=== PATIENT | male | born 1985 | race Caucasian/White ===

== ENCOUNTER 2022-12-17 22:33 | Emergency (ER) | payer MEDICAID, SELFPAY ==
--- NOTE | ~2022-12-17 | CT_ITS ---
EXAMINATION: CT diagnostic chest wo con DATE: 12/17/2022 23:27 INDICATION: Shortness of breath TECHNIQUE: Computed tomography (CT) of the chest was performed without intravenous contrast. The dose -length product (DLP) was 511.62 mGy-cm. Automated exposure control and iterative reconstruction tech [place] were employed. COMPARISON: 04/18/2016 FINDINGS: There are subtle airspace opacities of the right upper and lower lobes. Areas of atelectasi s/scarring are present in the lingula and right middle lobe. No pleural effusion or pneumothorax. No pathologically enlarged thoracic lymph nodes are identified. The heart size is normal. The liver is d iffusely low in attenuation when compared with the spleen, consistent with hepatic steatosis. There i s anterior wedging of the T12 vertebral body, new since the comparison examination. IMPRESSION: 1. Subtle airspace opacities of the right upper lower lobes, likely infectious or inflammatory. Reviewed, dictated and finalized at location A.
[2022-12-17 22:40] VITALS: BP 156/94; PULSE 67; PULSE 70; RESP 18; TEMP 36.8; O2SAT 95
--- NOTE | 2022-12-17 22:59 | ECG_ITS ---
Measurements Intervals [place] Rate: 54 P: 65 IA: 138 QRS: 55 QRSD: 100 T: 56 QT: 419 QTc: 399 Interpretive Statements SINUS BRADYCARDIA BASELINE ARTIFACT- II, III BORDERLINE ECG NO PREVIOUS ECG AVAILABLE FOR COMPARISON Electronically Signed On 12-18-2022 6:44:16 CDT by Rodney Bahena D.O.
[2022-12-17 23:00] VITALS: BP 133/74; PULSE 70; RESP 18; O2SAT 95
[2022-12-17] MEDS: methylPREDNISolone SOD SUCC 125 MG VIAL IV PUSH (23:22)
[2022-12-17 23:24] VITALS: PULSE 62; RESP 18; O2SAT 96
[2022-12-17] MEDS: IPRATROPIUM 0.5 MG/ALBUTEROL SULFATE 2.5 MG AMPUL.NEB 3 ML INHALATION (23:24)
--- NOTE | 2022-12-17 23:25 | PC.NURSE ---
PT returned from CT. Cardio/pulmonary therapy at bedside for ECG and updraft tx. Monitors resumed. PT medicated with Solu-Medrol as ordered. Family remains at bedside. Call light in reach. Side rails up x 2. Bed brakes on.
[2022-12-17 23:34] VITALS: PULSE 80; RESP 18; O2SAT 98
[2022-12-17 23:34] LABS: Basophils Absolute Auto 0.03 K/mm3 (0.00-0.10); Basophils Percent Auto 0.3 % (0.0-1.0); Eosinophils Absolute Auto 0.01 K/mm3 (0.02-0.50); Eosinophils Percent Auto 0.1 % (1.0-6.0); Hematocrit 50.7 % (40.0-54.0); Hemoglobin 16.9 g/dL (14.0-18.0); Immature Granulocyte Absolute 0.03 K/mm3 (0.00-0.00); Immature Granulocyte Percent A 0.3 % (0.0-0.0); Lymphocytes Absolute Auto 1.28 K/mm3 (1.10-4.50); Lymphocytes Percent Auto 13.4 % (18.0-42.0); Mean Corpuscular HGB Conc 33.3 g/dL (32.0-36.0); Mean Corpuscular Hemoglobin 29.3 pg (27.0-31.0); Mean Corpuscular Volume 87.9 fL (78.0-102.0); Mean Platelet Volume 10.3 fl (8.7-11.0); Monocytes Absolute Auto 0.58 K/mm3 (0.10-0.90); Monocytes Percent Auto 6.1 % (2.0-11.0); Neutrophils Absolute Auto 7.6 K/mm3 (1.7-7.2); Neutrophils Percent Auto 79.8 % (50.0-70.0); Platelet Count Result 240 K/mm3 (150-420); Red Blood Count 5.77 M/mm3 (4.70-6.10); Red Cell Distribution Width 13.5 % (11.6-14.4); White Blood Count 9.6 K/mm3 (4.8-10.8)
[2022-12-17 23:48] LABS: D Dimer 0.21 mg/L (0.19-0.50); INR 0.9; Partial Thromboplastin Time 30.3 SEC (23.90-30.70); Prothrombin Time 10.4 Seconds (9.50-12.10)
[2022-12-18 00:02] LABS: Alanine Aminotransferase 39 U/L (16-63); Albumin Level 4.4 g/dL (3.4-5.0); Alkaline Phosphatase 61 U/L (46-116); Anion Gap 13 mmol/L (8-16); Aspartate Amino Transferase 31 U/L (15-37); Bilirubin,Total 0.6 mg/dL (0.00-1.00); Blood Urea Nitrogen 20 mg/dL (7-18); Carbon Dioxide 25 mmol/L (21-32); Chloride 102 mmol/L (98-108); Estimated Glomerular Filt Rate > 60; Glucose 130 mg/dL (70-99); Magnesium 2.3 mg/dL (1.8-2.4); NT Pro B Type Natriuretic Pept 48 pg/mL (0-125); Osmolality Calculated 294 mOsm/kg (285-295); Potassium 3.9 mmol/L (3.5-5.1); Sodium 140 mmol/L (136-145); Total Protein 8.3 g/dL (6.4-8.2); Troponin I 7.6 ng/L (0.00-60.4)
--- NOTE | 2022-12-18 00:09 | ED.SOB ---
HPI - SOB/Dyspnea General Chief Complaint: Shortness of Breath/Dyspnea Stated Complaint: SOB Time Seen by Provider: 12/17/22 22:47 Source: patient Mode of arrival: ambulatory Limitations: no limitations History of Present Illness HPI Narrative: this is a 37-year-old male that presents with increasing shortness of breath patient has a smoking history and was recently seen in another ER yesterday and diagnosed with some upper respiratory tract infection / bronchitis, presents this evening with increasing shortness of breath despite him taking antibiotics and a Dosepak of steroids. The patient has some wheezing is currently a smoker with no fever chills O2 sats initially around 95% on presentation with no chest pain no abdominal pain nonproductive cough. MD elicited complaint: shortness of breath Related Data Home Medications Medication Instructions Recorded Confirmed azithromycin 250 mg tablet 250 mg PO DAILY 12/17/22 12/17/22 hydrocodone 5 mg-acetaminophen 325 1 - 2 tablet PO QID 12/17/22 12/17/22 mg tablet methylprednisolone 4 mg tablets in 4 mg PO DIRECTED 12/17/22 12/17/22 a dose pack Allergies Allergy/AdvReac Type Severity Reaction Status Date / Time ketorolac Allergy Mild Rash Verified 12/17/22 22:51 PCN Allergy Severe Swelling Uncoded 12/17/22 22:51 of Lip/Tongue/Throat PMFSH Past Medical History Medical History History of pleural effusion Exam Const: General: healthy appearing Nutritional Appearance: well nourished Orientation/consciousness: patient oriented x3 Limitations: no limitations HENMT: Head: normal to inspection Eyes: Conjunctivae: conjunctivae normal Pupils: Equal, round and reactive pupils present EOM: EOMs intact bilaterally Neck: Neck: normal visual inspection Chest: Chest palpation & inspection: normal inspection of the chest Resp: Effort & Inspection: normal respiratory effort Auscultation: wheezes and diminished lung sounds Cardio: Rate: regular rate Rhythm: regular rhythm GI: GI Palp: Yes Soft to palpation Auscultation: normal bowel sounds : General: Yes bladder normal to palpation Skin: General skin exam: normal color Rashes: no rashes Wounds: no wounds Neuro: General: patient oriented x3 Cranial nerves: Yes Nystagmus not present Extrem: General: normal to inspection Psych: Mental Status: mental status grossly normal Affect: normal affect Course Course Emergency Course: patient received IV steroid and DuoNeb had a CT scan of the chest that shows no pleural effusion does not show pneumonia blood work reviewed with patient with a normal white count. Patient after breathing treatment lung sounds have improved patient's disposition as an improved his O2 sats 98% on room air. Vital Signs Vital signs: Vital Signs Temperature 36.8 C 12/17/22 22:40 Pulse Rate 70 12/17/22 22:40 Respiratory Rate 18 12/17/22 22:40 Blood Pressure 156/94 H 12/17/22 22:40 Pulse Oximetry 95 12/17/22 22:40 Oxygen Delivery Room Air 12/17/22 22:40 Temperature 36.8 C 12/17/22 22:40 Pulse Rate 80 12/17/22 23:34 Respiratory Rate 18 12/17/22 23:34 Blood Pressure 156/94 H 12/17/22 22:40 Pulse Oximetry 98 12/17/22 23:34 Oxygen Delivery Room Air 12/17/22 22:40 MDM - SOB/Dyspnea Lab Data 12/17/22 22:59 12/17/22 22:59 Labs: Lab Results 12/17/22 Range/Units 22:59 WBC 9.6 (4.8-10.8) K/mm3 RBC 5.77 (4.70-6.10) M/mm3 Hgb 16.9 (14.0-18.0) g/dL Hct 50.7 (40.0-54.0) % MCV 87.9 (78.0-102.0) fL MCH 29.3 (27.0-31.0) pg MCHC 33.3 (32.0-36.0) g/dL RDW 13.5 (11.6-14.4) % Plt Count 240 (150-420) K/mm3 MPV 10.3 (8.7-11.0) fl Immature Gran % (Auto) 0.3 H (0.0-0.0) % Neut % (Auto) 79.8 H (50.0-70.0) % Lymph % (Auto) 13.4 L (18.0-42.0) % Floyd % (Auto) 6.1 (2.0-11.0) % Eos % (Auto) 0.1 L (1.0-6.0)
[2022-12-18 00:22] VITALS: BP 125/74; PULSE 59; RESP 16; O2SAT 95
--- NOTE | 2022-12-24 12:26 | PC.NURSE ---
final blood culture reports x2 reviewed. no growth after 5 days . no change in plan of care.
== END 2022-12-18 00:22 | disposition home or self-care (01) ==
PROVIDERS: Emergency Provider Emergency Medicine
DX: J06.9 Acute upper respiratory infection, unspecified (principal); Z79.891 Long term (current) use of opiate analgesic
CPT/HCPCS: 36415; 71250; 80053; 83735; 83880; 84484; 85025; 85380; 85610; 85730; 87040; 93005; 94640; 96374; 99284; J2930

== ENCOUNTER 2022-12-18 18:22 | Inpatient (IN) | payer MEDICAID, SELFPAY ==
[2022-12-18] VITALS (10 sets, daily range): BP systolic 103–158; BP diastolic 54–92; PULSE 84–113; RESP 20–24; TEMP 37.5–38.8; O2SAT 93–100; BMI 36.6
--- NOTE | ~2022-12-18 | XR_ITS ---
EXAMINATION: XR chest 2V DATE: 12/18/2022 19:58 INDICATION: Cough. Upper respiratory infection. Shortness of breath. TECHNIQUE: Frontal and lateral views of the chest were obtained. COMPARISON: Chest CT 12/17/2022, chest single view 04/18/2016 FINDINGS: There is blunting of the costophrenic angles, consistent with scarring. There are mild airs pace opacities in the mid and lower lung zones. No pleural effusion or pneumothorax. The heart size i s normal. There is a chronic compression fracture of T12. IMPRESSION: 1. Mild airspace opacities in the mid and lower lung zones, consistent with atelectasis/scarring vers us pneumonia. Reviewed, dictated and finalized at location E. IMPRESSION: 1. Mild airspace opacities in the mid and lower lung zones, consistent with ate lectasis/scarring versus pneumonia.
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
[2022-12-18 19:06] LABS: Strep Group A RT-PCR NOT DETECTED (Negative)
--- NOTE | 2022-12-18 19:12 | ECG_ITS ---
Measurements Intervals [place] Rate: 100 P: 57 ID: 120 QRS: 34 QRSD: 103 T: 59 QT: 331 QTc: 429 Interpretive Statements SINUS TACHYCARDIA BASELINE ARTIFACT- I, II, III, AVR, AVL, AVF BORDERLINE ECG COMPARED TO ECG 12/17/2022 23:35:39 SINUS TACHYCARDIA NOW PRESENT Electronically Signed On 12-19-2022 8:22:30 CDT by Rodney Bahena D.O.
[2022-12-18 19:18] LABS: Influenza A QL RT-PCR Negative (Negative); Influenza B QL RT-PCR Negative (Negative); SARS-CoV-2 RNA PCR Negative (Negative)
[2022-12-18 19:20] LABS: RSV RNA, RT-PCR Negative (Negative)
[2022-12-18] MEDS: IPRATROPIUM 0.5 MG/ALBUTEROL SULFATE 2.5 MG AMPUL.NEB 3 ML INHALATION (19:20)
[2022-12-18 19:42] LABS: Hematocrit 52.6 % (40.0-54.0); Hemoglobin 17.3 g/dL (14.0-18.0); Mean Corpuscular HGB Conc 32.9 g/dL (32.0-36.0); Mean Corpuscular Hemoglobin 29.3 pg (27.0-31.0); Mean Corpuscular Volume 89.2 fL (78.0-102.0); Mean Platelet Volume 10.3 fl (8.7-11.0); Platelet Count Result 232 K/mm3 (150-420); Red Cell Distribution Width 13.5 % (11.6-14.4)
[2022-12-18] MEDS: SODIUM CHLORIDE 0.9% IV 1,000 ML 999 ML IV CONT ×2 (19:43→20:46)
[2022-12-18] MEDS: BENZONATATE 100 MG CAPSULE 200 MG PO (19:44)
[2022-12-18] MEDS: diphenhydrAMINE HCl INJ 50 MG/ML VIAL IV PUSH (19:44)
[2022-12-18] MEDS: ACETAMINOPHEN 500 MG TABLET 1000 MG PO (19:44)
[2022-12-18] MEDS: guaiFENesin/DEXTROMETHORPHAN 5 ML UDC 10 ML PO (19:44)
[2022-12-18] MEDS: IBUPROFEN 400 MG TABLET 800 MG PO (19:45)
[2022-12-18 19:56] LABS: D Dimer 0.19 mg/L (0.19-0.50)
[2022-12-18 20:03] LABS: Band Neutrophils Percent 1 % (0-6); Basophils Percent Manual 0 % (0-1); Eosinophils Percent Manual 0 % (1-6); Lymphocytes Absolute Manual 2.53 K/mm3 (1.1-4.5); Lymphocytes Percent Manual 11 % (18-44); Monocytes Absolute Manual 1.38 K/mm3 (0.1-0.90); Monocytes Percent Manual 6 % (3-9); Neutrophils Absolute Manual 19.09 K/mm3 (1.3-6.7); Neutrophils Percent Manual 82 % (46-73); Platelet Estimate Adequate (Adequate); Total Cells Counted 100
[2022-12-18 20:04] LABS: Alanine Aminotransferase 34 U/L (16-63); Albumin Level 4.6 g/dL (3.4-5.0); Alkaline Phosphatase 63 U/L (46-116); Anion Gap 15 mmol/L (8-16); Aspartate Amino Transferase 34 U/L (15-37); Bilirubin,Total 0.9 mg/dL (0.00-1.00); Blood Urea Nitrogen 25 mg/dL (7-18); CRP 4.8 mg/dL (0.0-0.9); Calcium 9.1 mg/dL (8.5-10.1); Carbon Dioxide 22 mmol/L (21-32); Chloride 100 mmol/L (98-108); Estimated CRCL calculation 79 ml/min; Estimated Glomerular Filt Rate 59; Glucose 108 mg/dL (70-99); NT Pro B Type Natriuretic Pept 50 pg/mL (0-125); Osmolality Calculated 289 mOsm/kg (285-295); Potassium 3.8 mmol/L (3.5-5.1); Sodium 137 mmol/L (136-145); Total Protein 8.8 g/dL (6.4-8.2)
[2022-12-18 20:12] LABS: Lactic Acid Reflex 3.3 mmol/L (0.4-2.0)
[2022-12-18] MEDS: cefTRIAXone 2 GM/NS 100 ML 2 GM/100 ML BAG IVPB (20:16)
[2022-12-18 20:45] LABS: Erythrocyte Sedimentation Rate 6 mm/hr (0-15)
[2022-12-18] MEDS: AZITHROMYCIN 500 MG/NS 250 ML 500 MG/250 ML BAG 250 MG IVPB (20:47)
--- NOTE | 2022-12-18 21:54 | ADMGEN ---
This patient, Daquan Miranda III, was admitted to 2nd Floor Room 209-1. Patient/family oriented to hospital policies and general routines including ID bracelet, bed and alarms, visiting hours, pain management, procedures, bathroom and other care routines, personal items, smoking policy, room service/diet, and visiting hours. Information on how to activate the Rapid Response Team has been discussed. Patient/Family are encouraged to report perceived risks to care and to ask questions if they do not understand what they are told or what they should do. Pt stated understanding of admission instructions, he answers questions appropriately and is up ad yonatan per self to BR to urinate. Pt has call meneses at side and encouraged to call if assist needed.
[2022-12-18] MEDS: SODIUM CHLORIDE 0.9% IV 1,000 ML 100 ML IV CONT (22:11)
--- NOTE | 2022-12-18 22:13 | PC.NURSE ---
Pt was able to produce small amt thin clear sputum for culture. Taken to lab per order. Pt sitting on side of bed eating another sandwich. Pt states he is feeling much better and able to finally tolerate eating regular food.
[2022-12-18 22:40] LABS: Reflex Lactic Acid Yes or No Add Lactic
[2022-12-18 23:17] LABS: Lactic Acid 2.2 mmol/L (0.4-2.0)
[2022-12-19] VITALS (14 sets, daily range): BP systolic 110–170; BP diastolic 40–83; PULSE 53–85; RESP 16–19; TEMP 35.9–37.2; O2SAT 92–100
[2022-12-19] MEDS: methylPREDNISolone SOD SUCC 125 MG VIAL 60 MG IV PUSH ×5 (00:08→23:23)
[2022-12-19 05:09] LABS: Basophils Absolute Auto 0.03 K/mm3 (0.00-0.10); Basophils Percent Auto 0.2 % (0.0-1.0); Hematocrit 45.6 % (40.0-54.0); Hemoglobin 14.9 g/dL (14.0-18.0); Immature Granulocyte Absolute 0.06 K/mm3 (0.00-0.00); Immature Granulocyte Percent A 0.4 % (0.0-0.0); Lymphocytes Absolute Auto 1.24 K/mm3 (1.10-4.50); Lymphocytes Percent Auto 8.8 % (18.0-42.0); Mean Corpuscular HGB Conc 32.7 g/dL (32.0-36.0); Mean Corpuscular Hemoglobin 29.3 pg (27.0-31.0); Mean Corpuscular Volume 89.6 fL (78.0-102.0); Mean Platelet Volume 10.6 fl (8.7-11.0); Monocytes Absolute Auto 0.39 K/mm3 (0.10-0.90); Monocytes Percent Auto 2.8 % (2.0-11.0); Neutrophils Absolute Auto 12.4 K/mm3 (1.7-7.2); Neutrophils Percent Auto 87.8 % (50.0-70.0); Platelet Count Result 221 K/mm3 (150-420); Red Blood Count 5.09 M/mm3 (4.70-6.10); Red Cell Distribution Width 13.7 % (11.6-14.4); White Blood Count 14.2 K/mm3 (4.8-10.8)
[2022-12-19 05:25] LABS: Alanine Aminotransferase 27 U/L (16-63); Albumin Level 3.2 g/dL (3.4-5.0); Alkaline Phosphatase 46 U/L (46-116); Anion Gap 9 mmol/L (8-16); Aspartate Amino Transferase 20 U/L (15-37); Bilirubin,Total 0.3 mg/dL (0.00-1.00); Blood Urea Nitrogen 27 mg/dL (7-18); Calcium 8.2 mg/dL (8.5-10.1); Carbon Dioxide 23 mmol/L (21-32); Chloride 109 mmol/L (98-108); Estimated CRCL calculation 89 ml/min; Estimated Glomerular Filt Rate > 60; Glucose 154 mg/dL (70-99); Osmolality Calculated 300 mOsm/kg (285-295); Potassium 4.3 mmol/L (3.5-5.1); Sodium 141 mmol/L (136-145); Total Protein 6.6 g/dL (6.4-8.2)
[2022-12-19 05:32] LABS: Lactic Acid Reflex 1.2 mmol/L (0.4-2.0)
[2022-12-19] MEDS: IPRATROPIUM 0.5 MG/ALBUTEROL SULFATE 2.5 MG AMPUL.NEB 3 ML INHALATION ×4 (06:41→18:40)
[2022-12-19] MEDS: NICOTINE (*PBKC) 21 MG PATCH 1 PATCH TRANSDERM (08:17)
[2022-12-19] MEDS: BENZONATATE 100 MG CAPSULE 200 MG PO ×3 (08:17→17:18)
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
--- NOTE | 2022-12-19 09:10 | PC.NURSE ---
OPERATIONS PROGRAM MANAGER notified of sepsis alert and all vital signs related to patient and condition. Orders to monitor at this time.
[2022-12-19] MEDS: HYDROcodone/acetaminophen (*CRX) 5-325 MG TABLET 1 TAB PO (20:32)
[2022-12-19] MEDS: AZITHROMYCIN 500 MG/NS 250 ML 500 MG/250 ML BAG 250 MG IVPB (20:32)
[2022-12-20] VITALS (14 sets, daily range): BP systolic 118–151; BP diastolic 54–72; PULSE 58–97; RESP 16–18; TEMP 35.9–36.9; O2SAT 95–99
[2022-12-20] MEDS: IPRATROPIUM 0.5 MG/ALBUTEROL SULFATE 2.5 MG AMPUL.NEB 3 ML INHALATION ×4 (00:01→18:27)
[2022-12-20] MEDS: methylPREDNISolone SOD SUCC 125 MG VIAL 60 MG IV PUSH ×2 (05:15→08:12)
[2022-12-20 05:21] LABS: Basophils Absolute Auto 0.02 K/mm3 (0.00-0.10); Basophils Percent Auto 0.1 % (0.0-1.0); Hematocrit 46.8 % (40.0-54.0); Hemoglobin 15.3 g/dL (14.0-18.0); Immature Granulocyte Absolute 0.16 K/mm3 (0.00-0.00); Immature Granulocyte Percent A 0.9 % (0.0-0.0); Lymphocytes Absolute Auto 1.17 K/mm3 (1.10-4.50); Lymphocytes Percent Auto 6.4 % (18.0-42.0); Mean Corpuscular HGB Conc 32.7 g/dL (32.0-36.0); Mean Corpuscular Hemoglobin 29.6 pg (27.0-31.0); Mean Corpuscular Volume 90.5 fL (78.0-102.0); Mean Platelet Volume 10.8 fl (8.7-11.0); Monocytes Absolute Auto 0.68 K/mm3 (0.10-0.90); Monocytes Percent Auto 3.7 % (2.0-11.0); Neutrophils Absolute Auto 16.3 K/mm3 (1.7-7.2); Neutrophils Percent Auto 88.9 % (50.0-70.0); Platelet Count Result 230 K/mm3 (150-420); Red Blood Count 5.17 M/mm3 (4.70-6.10); Red Cell Distribution Width 14.2 % (11.6-14.4); White Blood Count 18.4 K/mm3 (4.8-10.8)
[2022-12-20 05:37] LABS: Alanine Aminotransferase 25 U/L (16-63); Albumin Level 3.3 g/dL (3.4-5.0); Alkaline Phosphatase 45 U/L (46-116); Anion Gap 10 mmol/L (8-16); Aspartate Amino Transferase 18 U/L (15-37); Bilirubin,Total 0.3 mg/dL (0.00-1.00); Blood Urea Nitrogen 20 mg/dL (7-18); Calcium 8.6 mg/dL (8.5-10.1); Carbon Dioxide 23 mmol/L (21-32); Chloride 108 mmol/L (98-108); Estimated CRCL calculation 106 ml/min; Estimated Glomerular Filt Rate > 60; Glucose 146 mg/dL (70-99); Osmolality Calculated 297 mOsm/kg (285-295); Potassium 3.9 mmol/L (3.5-5.1); Sodium 141 mmol/L (136-145); Total Protein 6.9 g/dL (6.4-8.2)
[2022-12-20 05:42] LABS: Lactic Acid Reflex 1.8 mmol/L (0.4-2.0)
--- NOTE | 2022-12-20 07:05 | WPDPN ---
Progress Note: A&P Assessment and Plan (1) Pneumonia: Qualifiers: Laterality: right Lung location: lower lobe of lung Pneumonia type: due to unspecified organism Qualified Code(s): J18.9 - Pneumonia, unspecified organism Code(s): J18.9 - Pneumonia, unspecified organism Status: Acute Assessment and Plan: As evidenced by imaging. I have independently reviewed imaging myself and agree. RUL and RLL Consolodations present. No longer meeting Sepsis criteria. Blood cultures pending. Pneumococcal Ag Urine pending. Continue with scheduled Duoneb, and prn Albuterol, suspect COPD component. Pt. would benefit from formal Pulmonary function testing at discharge. Continue IV abx of Azithromycin and Rocephin. Today is Day #2 of IV Abx. Continue IV Solumedrol decreased to daily Monitor sats with VS. Continue to trend labs. PRN cough meds PRN antipyretics Oxygen as needed to keep sats >92%. WBC 23.0>14.2>18.4 decresaed steroid to see if wbc is improved. (2) Nicotine dependence with current use: Code(s): F17.200 - Nicotine dependence, unspecified, uncomplicated Status: Chronic Assessment and Plan: Nicotine Patch Counseled for discontinuation of Nicotine use. (3) Sepsis: Qualifiers: Sepsis acute organ dysfunction status: without acute organ dysfunction Sepsis type: sepsis due to unspecified organism Qualified Code(s): A41.9 - Sepsis, unspecified organism Code(s): A41.9 - Sepsis, unspecified organism Status: Resolved Assessment and Plan: Now resolved with interval improvement in WBC's, Lactic acid and now stable vitals. Plan Will monitor patient for another 24 hours and allow him to receive more IV abx then reassess. Subjective Date/time seen: 12/20/22 07:05 Interval history: patient is anxious to discharge but knows he is not ready and is welling to stay. He did note that his is anxious due to family issue and has agree to Ativan. I explained to patient that is wbc has increased and we need to make sure his abx is appropriate. he did stay that his breathing is fine and normal now. Patient will stay another day to monitor wbc. Review of Systems Review of Systems: All systems reviewed & are unremarkable except as noted in HPI and below Objective Data Vital Signs Vital Signs: Vital Signs - 24 hr 12/19/22 07:44 12/19/22 07:44 12/19/22 12:00 Temperature 35.9 C L Pulse Rate 61 53 L 76 Respiratory Rate 18 Blood Pressure 110/40 L Pulse Oximetry 96 Oxygen Delivery Room Air 12/19/22 12:00 12/19/22 12:25 12/19/22 12:31 Temperature 36.5 C Pulse Rate 57 L 60 59 L Respiratory Rate 18 16 16 Blood Pressure 170/83 H Pulse Oximetry 97 97 Oxygen Delivery Room Air 12/19/22 16:00 12/19/22 16:00 12/19/22 18:40 Temperature 36.5 C Pulse Rate 70 75 72 Respiratory Rate 16 18 Blood Pressure 148/74 H Pulse Oximetry 98 98 Oxygen Delivery Room Air 12/19/22 18:45 12/19/22 20:00 12/19/22 20:00 Temperature Pulse Rate 75 79 75 Respiratory Rate 16 16 Blood Pressure Pulse Oximetry 100 100 Oxygen Delivery Room Air 12/19/22 20:00 12/20/22 00:01 12/20/22 00:08 Temperature 36.7 C Pulse Rate 79 77 75 Respiratory Rate 17 17 17 Blood Pressure 130/64 Pulse Oximetry 96 98 98 Oxygen Delivery Room Air 12/20/22 00:00 12/20/22 00:00 12/20/22 04:00 Temperature 36.5 C Pulse Rate 80 80 72 Respiratory Rate 18 Blood Pressure 131/70 Pulse Oximetry 96 Oxygen Delivery Room Air 12/20/22 04:00 12/20/22 06:26 12/20/22 06:35 Temperature 36.6 C Pulse Rate 72 58 L 60 Respiratory Rate 17 16 16 Blood Pressure 123/54 L Pulse Oximetry 96 97 99 Oxygen Delivery Room Air Intake/Output Intake/Output: Intake & Output 12/17/22 12/18/22 12/19/22 12/20/22 23:59 23:59 23:59 23:59 Intake Total 2830 3280 480 Output Total 300 Balance 2830 2980 480 Meds/Results Medications
[2022-12-20] MEDS: LORazepam INJ (*CRX) 2 MG/ML VIAL 0.5 MG IV PUSH ×2 (08:09→20:57)
[2022-12-20] MEDS: traMADol HCL (*CRX) 50 MG TABLET PO (08:14)
[2022-12-20] MEDS: NICOTINE (*PBKC) 21 MG PATCH 1 PATCH TRANSDERM (08:15)
[2022-12-20] MEDS: BENZONATATE 100 MG CAPSULE 200 MG PO ×3 (08:15→17:03)
[2022-12-20] MEDS: AZITHROMYCIN 500 MG/NS 250 ML 500 MG/250 ML BAG 250 MG IVPB (20:56)
[2022-12-20] MEDS: HYDROcodone/acetaminophen (*CRX) 5-325 MG TABLET 1 TAB PO (20:57)
[2022-12-21] VITALS (7 sets, daily range): BP systolic 120–138; BP diastolic 57–82; PULSE 66–85; RESP 16–17; TEMP 36.2–36.6; O2SAT 96–98
[2022-12-21] MEDS: IPRATROPIUM 0.5 MG/ALBUTEROL SULFATE 2.5 MG AMPUL.NEB 3 ML INHALATION ×2 (00:11→05:24)
[2022-12-21 05:53] LABS: Basophils Absolute Auto 0.03 K/mm3 (0.00-0.10); Basophils Percent Auto 0.2 % (0.0-1.0); Eosinophils Absolute Auto 0.01 K/mm3 (0.02-0.50); Eosinophils Percent Auto 0.1 % (1.0-6.0); Hematocrit 45.6 % (40.0-54.0); Hemoglobin 14.9 g/dL (14.0-18.0); Immature Granulocyte Absolute 0.18 K/mm3 (0.00-0.00); Immature Granulocyte Percent A 1.1 % (0.0-0.0); Lymphocytes Absolute Auto 2.39 K/mm3 (1.10-4.50); Lymphocytes Percent Auto 14.2 % (18.0-42.0); Mean Corpuscular HGB Conc 32.7 g/dL (32.0-36.0); Mean Corpuscular Hemoglobin 29.4 pg (27.0-31.0); Mean Corpuscular Volume 89.9 fL (78.0-102.0); Mean Platelet Volume 11.3 fl (8.7-11.0); Monocytes Absolute Auto 1.21 K/mm3 (0.10-0.90); Monocytes Percent Auto 7.2 % (2.0-11.0); Neutrophils Percent Auto 77.2 % (50.0-70.0); Platelet Count Result 229 K/mm3 (150-420); Red Blood Count 5.07 M/mm3 (4.70-6.10); Red Cell Distribution Width 14.4 % (11.6-14.4); White Blood Count 16.9 K/mm3 (4.8-10.8)
[2022-12-21 06:10] LABS: Lactic Acid Reflex 1.2 mmol/L (0.4-2.0)
[2022-12-21 06:16] LABS: Alanine Aminotransferase 29 U/L (16-63); Albumin Level 3.3 g/dL (3.4-5.0); Alkaline Phosphatase 45 U/L (46-116); Anion Gap 8 mmol/L (8-16); Aspartate Amino Transferase 16 U/L (15-37); Bilirubin,Total 0.3 mg/dL (0.00-1.00); Blood Urea Nitrogen 21 mg/dL (7-18); Calcium 8.5 mg/dL (8.5-10.1); Carbon Dioxide 26 mmol/L (21-32); Chloride 108 mmol/L (98-108); Estimated CRCL calculation 121 ml/min; Estimated Glomerular Filt Rate > 60; Glucose 94 mg/dL (70-99); Osmolality Calculated 297 mOsm/kg (285-295); Potassium 3.6 mmol/L (3.5-5.1); Sodium 142 mmol/L (136-145); Total Protein 6.6 g/dL (6.4-8.2)
[2022-12-21] MEDS: NICOTINE (*PBKC) 21 MG PATCH 1 PATCH TRANSDERM (08:26)
[2022-12-21] MEDS: methylPREDNISolone SOD SUCC 125 MG VIAL 60 MG IV PUSH (08:27)
[2022-12-21] MEDS: BENZONATATE 100 MG CAPSULE 200 MG PO (08:29)
--- NOTE | 2022-12-21 09:06 | PM.DS ---
DS: Admitting Diagnosis Discharge Date 12/21/2022 Admitting Diagnosis Pneumonia , Sepsis DS: Discharge Diagnosis Discharge Diagnosis (1) Pneumonia: Qualifiers: Laterality: right Lung location: lower lobe of lung Pneumonia type: due to unspecified organism Qualified Code(s): J18.9 - Pneumonia, unspecified organism Code(s): J18.9 - Pneumonia, unspecified organism Status: Acute Assessment and Plan: As evidenced by imaging. I have independently reviewed imaging myself and agree. RUL and RLL Consolodations present. No longer meeting Sepsis criteria. Blood cultures pending. Pneumococcal Ag Urine pending. Continue with scheduled Duoneb, and prn Albuterol, suspect COPD component. Pt. would benefit from formal Pulmonary function testing at discharge. Continue IV abx of Azithromycin and Rocephin. Today is Day #2 of IV Abx. Continue IV Solumedrol Monitor sats with VS. Continue to trend labs. PRN cough meds PRN antipyretics Oxygen as needed to keep sats >92%. (2) Nicotine dependence with current use: Code(s): F17.200 - Nicotine dependence, unspecified, uncomplicated Status: Chronic Assessment and Plan: Nicotine Patch Counseled for discontinuation of Nicotine use. (3) Sepsis: Qualifiers: Sepsis acute organ dysfunction status: without acute organ dysfunction Sepsis type: sepsis due to unspecified organism Qualified Code(s): A41.9 - Sepsis, unspecified organism Code(s): A41.9 - Sepsis, unspecified organism Status: Resolved Assessment and Plan: Now resolved with interval improvement in WBC's, Lactic acid and now stable vitals. Plan Will monitor patient for another 24 hours and allow him to receive more IV abx then reassess. DS: Summary Hospital Course Reason for hospitalization: PNEUMONIA Hospital Course: Year old male that was admitted to the hospital with sepsis hypoxia and pneumonia and was febrile. Patient was treated with IV antibiotics of vancomycin and Zosyn and was receiving around the clock breathing treatments. Patient has continued to improve is responding to medication. Patient continues to be a daily smoker and has an inhaler at home. Patient continues to have occasional intermittent wheezing but has remained afebrile for the past 24 hours. Have discussed with patient the importance of quitting to smoke patient feels better and bills like he is able to go home. Patient white count remains high but is trending down. Patient has been on room air and denies any pain has been eating and drinking without any difficulty and has been off of oxygen for more than 24 hours. Patient will discharge with an inhaler oral antibiotics as well as oral steroids to follow up with his PCP within a week. DISCUSSED elevated WBC and pneumonia with patient he states he is feeling a lot better and he insists that he is in need of discharging today as he feels a lot better and he is not wanting to stay a additional day to monitor her WBC Time Spent with Patient Time attestation: Total time spent providing and/or coordinating discharge services: Exam Const: General: comfortable and no acute distress HENMT: Face/Nose/Sinus: Normal nares present and no epistaxis Mouth: Yes moist mucous membranes and No Abnormal oral and palatal mucosa present Eyes: General: appearance normal, both eyes and all related structures Sclera: sclerae normal Pupils: Equal, round and reactive pupils present EOM: EOMs intact bilaterally Neck: Neck: supple and no JVD Carotids: no bruits Lymphatic: lymphadenopathy not noted Chest: Other: Non-tender to palpation and no crepitus palpable. Resp: Effort & Inspection: normal respiratory effort Auscultation: crackles bilateral at the base and wheezes expiratory wheezes, anterior and posterior Other: Prolonged expiratory phase present. Cardio: Rate: regular rate Rhythm: regular rhythm Heart sounds: n
--- NOTE | 2022-12-21 09:07 | PC.NURSE ---
Discontinued IV access and telemetry in anticipation of discharge. Patient tolerated well.
--- NOTE | 2022-12-21 10:35 | PC.NURSE ---
Discharge instructions given to patient and his brother. Patient voiced understanding. Patient left floor ambulating independently and left hospital grounds in privately owned vehicle. Personal belongings sent home with patient.
[2022-12-23 20:58] LABS: Pneumococcal Antigen Urine Not Detected (Not Detected)
--- NOTE | 2022-12-24 11:03 | PC.NURSE ---
Unable to contact for discharge call back.
== END 2022-12-21 10:35 | disposition home or self-care (01) | DRG 720 ==
LOC: CHSED 20:41 → CHS2ND 20:44
PROVIDERS: Nurse Practitioner Adult Health; Admitting Provider Internal Medicine; Emergency Provider Emergency Medicine; Visit Provider Internal Medicine
DX: A41.9 Sepsis, unspecified organism (principal); J18.9 Pneumonia, unspecified organism; Z20.822 Contact with and (suspected) exposure to COVID-19; J06.9 Acute upper respiratory infection, unspecified; F17.210 Nicotine dependence, cigarettes, uncomplicated
CPT/HCPCS: 36415; 71046; 80053; 83605; 83880; 85025; 85380; 85652; 86140; 87040; 87070; 87205; 87637; 87651; 87899; 93005; 94640; 96365; 96375; 99285; A9270; J0456; J0696; J1200; J2060; J2930; J7030

== ENCOUNTER 2023-02-15 09:57 | Emergency (ER) | payer MEDICAID, SELFPAY ==
[2023-02-15] VITALS (12 sets, daily range): BP systolic 102–133; BP diastolic 53–101; PULSE 44–73; RESP 11–22; TEMP 36.6–36.7; O2SAT 89–98
--- NOTE | ~2023-02-15 | CT_ITS ---
EXAMINATION: CT abdomen pelvis w con DATE: 02/15/2023 11:23 INDICATION: Epigastric abdominal pain, emesis for one day TECHNIQUE: Computed tomography (CT) of the abdomen and pelvis was performed with 100 CC Omnipaque 350 intravenous contrast. Automated exposure control and iterative reconstruction technique were employe d. Exam dose: 983.78 mGy-cm total exam DLP. COMPARISON: None. FINDINGS: Mild atelectasis and/or scarring at the lung bases. Normal heart size. No pericardial or pleural effusion. There is diffuse hepatic steatosis. No hepatic space-occupying mass lesion is detected. Normal spleni c size. No pancreatic mass lesion, calcification or ductal dilatation. The gallbladder is present. No gallbladder wall thickening or pericholecystic fluid or fat stranding. Normal caliber of the bile ducts. Normal morphology of the adrenal glands. No renal mass lesion or urinary tract calculus or hydroureteronephrosis. Normal appendix. No bowel obstruction, bowel wall thickening, pneumatosis or intraperitoneal free air. There is prosta te enlargement and multiple prostate calcifications. The urinary bladder appears unremarkable. There is an IVC filter. Normal caliber of the abdominal aorta. No intraperitoneal or retroperitoneal or pelvic mass lesion or adenopathy or ascites. Small fat-containing umbilical hernia. Moderate loss of height and anterior wedging of T12, which appears chronic. No suspicious osteolytic or osteoblastic lesions are noted. IMPRESSION: Diffuse hepatic steatosis Normal appendix No bowel obstruction or free air IVC filter Prostate enlargement and calcifications Chronic compression fracture deformity of T12 Reviewed, dictated and finalized at [facility]. Reviewed, dictated and finalized at location B.
--- NOTE | 2023-02-15 10:08 | ECG_ITS ---
Measurements Intervals [place] Rate: 50 P: 47 MS: 138 QRS: 52 QRSD: 106 T: 45 QT: 449 QTc: 412 Interpretive Statements SINUS BRADYCARDIA BORDERLINE ECG COMPARED TO ECG 12/18/2022 19:26:48 SINUS BRADYCARDIA NOW PRESENT Electronically Signed On 02-15-2023 10:32:42 CDT by Rodney Bahena D.O.
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
--- NOTE | 2023-02-15 10:15 | PC.NURSE ---
air launch weapons technician at patient bedside for blood draw
[2023-02-15 10:26] LABS: Basophils Absolute Auto 0.05 K/mm3 (0.00-0.10); Basophils Percent Auto 0.6 % (0.0-1.0); Eosinophils Absolute Auto 0.15 K/mm3 (0.02-0.50); Eosinophils Percent Auto 1.8 % (1.0-6.0); Hematocrit 44.9 % (40.0-54.0); Hemoglobin 15.2 g/dL (14.0-18.0); Immature Granulocyte Absolute 0.04 K/mm3 (0.00-0.00); Immature Granulocyte Percent A 0.5 % (0.0-0.0); Lymphocytes Absolute Auto 2.58 K/mm3 (1.10-4.50); Lymphocytes Percent Auto 30.8 % (18.0-42.0); Mean Corpuscular HGB Conc 33.9 g/dL (32.0-36.0); Mean Corpuscular Hemoglobin 29.3 pg (27.0-31.0); Mean Corpuscular Volume 86.5 fL (78.0-102.0); Mean Platelet Volume 10.4 fl (8.7-11.0); Monocytes Absolute Auto 0.59 K/mm3 (0.10-0.90); Neutrophils Percent Auto 59.3 % (50.0-70.0); Platelet Count Result 270 K/mm3 (150-420); Red Blood Count 5.19 M/mm3 (4.70-6.10); Red Cell Distribution Width 13.6 % (11.6-14.4); White Blood Count 8.4 K/mm3 (4.8-10.8)
[2023-02-15] MEDS: PANTOPRAZOLE SODIUM IV 40 MG VIAL IV PUSH (10:39)
[2023-02-15] MEDS: ONDANSETRON INJ 4 MG/2 ML VIAL IV PUSH (10:39)
[2023-02-15] MEDS: MAG HYDROX/ALUMINUM HYD/SIMETH 30 ML, PHENobarb/HYOSCY/ATROPINE/SCOP 32.4 MG, LIDOCAINE... PO (10:40)
[2023-02-15] MEDS: SODIUM CHLORIDE 0.9% IV 1,000 ML 999 ML IV CONT ×2 (10:40→11:23)
[2023-02-15 10:52] LABS: Alanine Aminotransferase 47 U/L (16-63); Albumin Level 4.1 g/dL (3.4-5.0); Alkaline Phosphatase 43 U/L (46-116); Amylase 66 U/L (25-115); Anion Gap 10 mmol/L (8-16); Aspartate Amino Transferase 32 U/L (15-37); Bilirubin,Total 0.8 mg/dL (0.00-1.00); Blood Urea Nitrogen 16 mg/dL (7-18); Calcium 9.3 mg/dL (8.5-10.1); Carbon Dioxide 24 mmol/L (21-32); Chloride 106 mmol/L (98-108); Estimated CRCL calculation 90 ml/min; Estimated Glomerular Filt Rate > 60; Glucose 97 mg/dL (70-99); Lipase 79 U/L (16-77); Osmolality Calculated 291 mOsm/kg (285-295); Potassium 3.4 mmol/L (3.5-5.1); Sodium 140 mmol/L (136-145); Total Protein 7.1 g/dL (6.4-8.2); Troponin I 6.5 ng/L (0.00-60.4)
--- NOTE | 2023-02-15 12:07 | PC.NURSE ---
Visitor arrived at patient bedside at this time.
--- NOTE | 2023-02-15 12:45 | PC.NURSE ---
Dr. Negrete at patient bedside for patient update.
[2023-02-15] MEDS: POTASSIUM BICARBONATE 25 MEQ TABEF 50 MEQ PO (12:55)
== END 2023-02-15 13:20 | disposition home or self-care (01) ==
PROVIDERS: Emergency Provider Emergency Medicine
DX: R12 Heartburn (principal); F17.210 Nicotine dependence, cigarettes, uncomplicated
CPT/HCPCS: 36415; 74177; 80053; 82150; 83605; 83690; 84484; 85025; 93005; 96361; 96374; 96375; 99284; A9270; C9113; J2405; J7030; Q9967

== ENCOUNTER 2023-02-26 10:39 | Emergency (ER) | payer MEDICAID, SELFPAY ==
[2023-02-26 10:42] VITALS: BP 136/82; PULSE 85; RESP 20; TEMP 36.3; O2SAT 98
--- NOTE | 2023-02-26 10:44 | ECG_ITS ---
Measurements Intervals [place] Rate: 45 P: 48 RI: 133 QRS: 46 QRSD: 116 T: 42 QT: 462 QTc: 400 Interpretive Statements SINUS BRADYCARDIA OTHERWISE NORMAL ECG COMPARED TO ECG 02/15/2023 10:22:56 I NO DIFFERENCE Electronically Signed On 02-26-2023 12:38:52 CDT by Gianfranco Singh M.D.
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
[2023-02-26] MEDS: MAG HYDROX/ALUMINUM HYD/SIMETH 30 ML, PHENobarb/HYOSCY/ATROPINE/SCOP 32.4 MG, LIDOCAINE... PO (10:54)
[2023-02-26 10:58] VITALS: BP 128/75; PULSE 56; RESP 20; O2SAT 97
[2023-02-26 11:21] VITALS: BP 134/78; PULSE 54; RESP 20; O2SAT 97
== END 2023-02-26 11:27 | disposition home or self-care (01) ==
LOC: CHSED 11:23
PROVIDERS: Emergency Provider Emergency Medicine
DX: K21.9 Gastro-esophageal reflux disease without esophagitis (principal); F17.210 Nicotine dependence, cigarettes, uncomplicated
CPT/HCPCS: 93005; 99283; A9270

== ENCOUNTER 2023-02-28 09:03 | Emergency (ER) | payer MEDICAID, SELFPAY ==
--- NOTE | ~2023-02-28 | XR_ITS ---
EXAMINATION: XR chest 2V DATE: 02/28/2023 09:50 INDICATION: Dizziness and chest tightness TECHNIQUE: PA and lateral views of the chest were obtained. COMPARISON: Chest radiograph dated 12/18/[address] chest dated 12/17/2022 FINDINGS: Stable appearance of chronic pleural parenchymal scarring at the left lung base with blunting at the left costophrenic angle and posterior sulcus. No new airspace opacities, pulmonary edema, pleural eff usion or pneumothorax. Cardiomediastinal silhouette is normal. Chronic T12 compression fracture. IMPRESSION: 1. Chronic left basilar pleural-parenchymal scarring. No acute cardiopulmonary disease. Reviewed, dictated and finalized at location A.
--- NOTE | ~2023-02-28 | CT_ITS ---
EXAMINATION: CT brain wo con DATE: 02/28/2023 09:50 INDICATION: Dizziness, nausea and vomiting. TECHNIQUE: Computed tomography (CT) of the head was performed without intravenous contrast. Sagittal and coronal reconstructions were performed. The mA was adjusted according to patient size. Iterative reconstruction technique was employed. The dose-length product was 681.00 mGy-cm. COMPARISON: None FINDINGS: No acute intracranial hemorrhage, acute infarction or abnormal extra axial fluid collection. Small fo cus of nonspecific white matter hypoattenuation in the posterior left frontal lobe. Ventricles are no rmal and symmetric. No mass/mass effect. The orbits, paranasal sinuses and mastoid air cells are norm al. IMPRESSION: 1. Small focus of nonspecific white matter hypoattenuation in the left frontal lobe which is atypical for age. The differential diagnosis includes premature chronic small vessel ischemic disease (especi ally if the patient has cardiovascular risk factors), demyelinating disease such as multiple sclerosi s, drug abuse, vasculitis, or reactive astrocytosis (gliosis) secondary to nonspecific etiology. Coul d consider pre and postcontrast MRI for further evaluation. Reviewed, dictated and finalized at location A. IMPRESSION: 1. Small focus of nonspecific white matter hypoattenuation in the left frontal lobe which is atypical for age. The differential diagnosis includes premature c hronic small vessel ischemic disease (especially if the patient has cardiovascu lar risk factors), demyelinating disease such as multiple sclerosis, drug abuse , vasculitis, or reactive astrocytosis (gliosis) secondary to nonspecific etiol ogy. Could consider pre and postcontrast MRI for further evaluation.
[2023-02-28 09:05] VITALS: BP 128/38; PULSE 68; RESP 20; TEMP 37.2; O2SAT 100
--- NOTE | 2023-02-28 09:14 | ECG_ITS ---
Measurements Intervals [place] Rate: 46 P: 53 [place]: 133 QRS: 48 QRSD: 114 T: 25 QT: 436 QTc: 385 Interpretive Statements SINUS BRADYCARDIA with a short [place] interval MODERATE INTRAVENTRICULAR CONDUCTION DELAY [110+ ms QRS DURATION] COMPARED TO ECG 02/26/2023 10:53:59 No significant change Electronically Signed On 02-28-2023 14:56:48 CDT by Delia Bernard M.D.
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
[2023-02-28 09:45] LABS: Basophils Absolute Auto 0.03 K/mm3 (0.00-0.10); Basophils Percent Auto 0.4 % (0.0-1.0); Eosinophils Absolute Auto 0.08 K/mm3 (0.02-0.50); Hematocrit 41.5 % (40.0-54.0); Hemoglobin 14.2 g/dL (14.0-18.0); Immature Granulocyte Absolute 0.03 K/mm3 (0.00-0.00); Immature Granulocyte Percent A 0.4 % (0.0-0.0); Lymphocytes Absolute Auto 1.37 K/mm3 (1.10-4.50); Lymphocytes Percent Auto 17.5 % (18.0-42.0); Mean Corpuscular HGB Conc 34.2 g/dL (32.0-36.0); Mean Corpuscular Hemoglobin 30.3 pg (27.0-31.0); Mean Corpuscular Volume 88.7 fL (78.0-102.0); Mean Platelet Volume 10.4 fl (8.7-11.0); Monocytes Absolute Auto 0.52 K/mm3 (0.10-0.90); Monocytes Percent Auto 6.6 % (2.0-11.0); Neutrophils Absolute Auto 5.8 K/mm3 (1.7-7.2); Neutrophils Percent Auto 74.1 % (50.0-70.0); Platelet Count Result 249 K/mm3 (150-420); Red Blood Count 4.68 M/mm3 (4.70-6.10); Red Cell Distribution Width 13.9 % (11.6-14.4); White Blood Count 7.8 K/mm3 (4.8-10.8)
[2023-02-28 09:48] LABS: Appearance Urine Clear (Clear); Bilirubin Urine Negative (Negative); Blood Urine Negative (Negative); Color Urine Light Yellow (Yellow); Glucose Urine UA Negative (Negative); Ketones Urine Negative (Negative); Leukocyte Esterase Ur Negative LEU/UL (Negative); Nitrate Urine Negative (Negative); Protein Urine Negative (Negative); Specific Grav Ur 1.015 (1.010-1.020)
[2023-02-28] MEDS: MECLIZINE HCL 25 MG TABLET PO (09:53)
[2023-02-28 09:54] LABS: INR 0.9; Partial Thromboplastin Time 28.9 SEC (23.90-30.70); Prothrombin Time 9.9 Seconds (9.50-12.10)
[2023-02-28 09:58] LABS: Add Urine Microscopic? NO
[2023-02-28 10:04] LABS: Alanine Aminotransferase 63 U/L (16-63); Alkaline Phosphatase 47 U/L (46-116); Anion Gap 11 mmol/L (8-16); Aspartate Amino Transferase 50 U/L (15-37); Bilirubin,Total 0.6 mg/dL (0.00-1.00); Blood Urea Nitrogen 22 mg/dL (7-18); Calcium 8.9 mg/dL (8.5-10.1); Carbon Dioxide 24 mmol/L (21-32); Chloride 105 mmol/L (98-108); Estimated CRCL calculation 97 ml/min; Estimated Glomerular Filt Rate > 60; Glucose 118 mg/dL (70-99); Lipase 65 U/L (16-77); Magnesium 1.9 mg/dL (1.8-2.4); Osmolality Calculated 294 mOsm/kg (285-295); Potassium 3.8 mmol/L (3.5-5.1); Sodium 140 mmol/L (136-145); Total Protein 7.1 g/dL (6.4-8.2); Troponin I 6.7 ng/L (0.00-60.4)
[2023-02-28 10:04] LABS: Amphetamine Screen Urine Negative (Negative); Barbiturate Screen Urine Negative (Negative); Benzodiazepines Screen Urine Negative (Negative); Cannabinoid Screen Urine Positive (Negative); Cocaine Screen Urine Negative (Negative); Methadone Screen Urine Negative (Negative); Opiate Screen Urine Negative (Negative); Phencyclidine Screen Urine Negative (Negative)
[2023-02-28 10:07] LABS: Ethanol < 3 mg/dL (0-6)
[2023-02-28] MEDS: ALPRAZolam (*CRX) 0.5 MG TABLET PO (10:36)
[2023-02-28 11:34] VITALS: BP 130/72; PULSE 84; RESP 20; TEMP 36.8; O2SAT 98
== END 2023-02-28 11:40 | disposition home or self-care (01) ==
PROVIDERS: Emergency Provider Emergency Medicine
DX: F41.0 Panic disorder [episodic paroxysmal anxiety] (principal); R42 Dizziness and giddiness; F17.210 Nicotine dependence, cigarettes, uncomplicated
CPT/HCPCS: 36415; 70450; 71046; 80053; 80307; 81003; 83690; 83735; 84484; 85025; 85610; 85730; 93005; 99284; A9270

== ENCOUNTER 2023-04-20 04:35 | Emergency (ER) | payer MEDICAID, SELFPAY ==
[2023-04-20] VITALS (42 sets, daily range): BP systolic 115–148; BP diastolic 61–131; PULSE 60–102; RESP 10–20; TEMP 36.8–36.9; O2SAT 94–100
--- NOTE | ~2023-04-20 | XR_ITS ---
EXAMINATION: XR chest 2V DATE: 04/20/2023 05:24 INDICATION: Chest pain. TECHNIQUE: Frontal and lateral views of the chest were obtained. COMPARISON: Chest 2 views 02/28/2023, chest CT 12/17/2022 FINDINGS: Again seen is blunting of left lateral costophrenic angle, consistent with scarring. No pne umonia, pleural effusion, or pneumothorax. The heart size is normal. There is a left chest wall pacer with leads in the right atrium and right ventricle. There is a filter in the inferior vena cava. The re is mild chronic anterior wedging of multiple vertebral bodies. IMPRESSION: 1. Chronic scarring in left lateral costophrenic angle. Reviewed, dictated and finalized at location A.
--- NOTE | 2023-04-20 04:53 | ECG_ITS ---
Measurements Intervals [place] Rate: 61 P: 261 [place]: 183 QRS: 26 QRSD: 106 T: 30 QT: 437 QTc: 443 Interpretive Statements ELECTRONIC ATRIAL PACEMAKER BASELINE ARTIFACT- AVR, AVL, AVF ATYPICAL ECG COMPARED TO ECG 02/28/2023 09:25:07 ATRIAL PACEMAKER NOW PRSENT Electronically Signed On 04-20-2023 6:38:54 CDT by Rodney Bahena D.O.
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
--- NOTE | 2023-04-20 05:15 | PC.NURSE ---
[employer] Interrogator used on pts pacemaker by ERP. Call back received and report received, Miky from [employer] spoke c Dr Elizalde.
[2023-04-20 05:35] LABS: Basophils Absolute Auto 0.03 K/mm3 (0.00-0.10); Basophils Percent Auto 0.3 % (0.0-1.0); Eosinophils Absolute Auto 0.41 K/mm3 (0.02-0.50); Eosinophils Percent Auto 4.4 % (1.0-6.0); Hematocrit 40.8 % (40.0-54.0); Hemoglobin 13.7 g/dL (14.0-18.0); Immature Granulocyte Absolute 0.04 K/mm3 (0.00-0.00); Immature Granulocyte Percent A 0.4 % (0.0-0.0); Lymphocytes Absolute Auto 1.61 K/mm3 (1.10-4.50); Lymphocytes Percent Auto 17.4 % (18.0-42.0); Mean Corpuscular HGB Conc 33.6 g/dL (32.0-36.0); Mean Corpuscular Hemoglobin 29.3 pg (27.0-31.0); Mean Corpuscular Volume 87.2 fL (78.0-102.0); Mean Platelet Volume 9.8 fl (8.7-11.0); Monocytes Absolute Auto 0.61 K/mm3 (0.10-0.90); Monocytes Percent Auto 6.6 % (2.0-11.0); Neutrophils Absolute Auto 6.6 K/mm3 (1.7-7.2); Neutrophils Percent Auto 70.9 % (50.0-70.0); Platelet Count Result 247 K/mm3 (150-420); Red Blood Count 4.68 M/mm3 (4.70-6.10); Red Cell Distribution Width 13.4 % (11.6-14.4); White Blood Count 9.3 K/mm3 (4.8-10.8)
[2023-04-20] MEDS: LORazepam INJ (*CRX) 2 MG/ML VIAL 1 MG IV PUSH (05:35)
[2023-04-20 05:53] LABS: Alanine Aminotransferase 21 U/L (16-63); Albumin Level 4.1 g/dL (3.4-5.0); Alkaline Phosphatase 56 U/L (46-116); Anion Gap 8 mmol/L (8-16); Aspartate Amino Transferase 19 U/L (15-37); Bilirubin,Total 0.7 mg/dL (0.00-1.00); Blood Urea Nitrogen 20 mg/dL (7-18); Calcium 9.7 mg/dL (8.5-10.1); Carbon Dioxide 27 mmol/L (21-32); Chloride 104 mmol/L (98-108); Estimated CRCL calculation 93 ml/min; Estimated Glomerular Filt Rate > 60; Glucose 104 mg/dL (70-99); Lipase 56 U/L (16-77); Osmolality Calculated 290 mOsm/kg (285-295); Potassium 3.9 mmol/L (3.5-5.1); Sodium 139 mmol/L (136-145); Troponin I 4.4 ng/L (0.00-60.4)
[2023-04-20] MEDS: SODIUM CHLORIDE 0.9% IV 1,000 ML 999 ML IV CONT (06:10)
--- NOTE | 2023-04-20 06:23 | PC.NURSE ---
Pt sleeping, mother in law in rrom at bedside, continuing to monitor. Monitor showing paced rhythm at rate of 65, VSS. Awaiting labs and 3 hr trop explained to family member.
--- NOTE | 2023-04-20 09:14 | PC.NURSE ---
patient ambulatory to bathroom with steady gait.
[2023-04-20 09:17] LABS: Troponin I 4.2 ng/L (0.00-60.4)
--- NOTE | 2023-04-20 09:22 | PC.NURSE ---
patient reports dizziness has improved. if he is upright its fine but laying down is when its worse after waking up, patient reports he needs a sleep study.
== END 2023-04-20 09:58 | disposition home or self-care (01) ==
PROVIDERS: Emergency Provider Emergency Medicine
DX: R42 Dizziness and giddiness (principal); F17.210 Nicotine dependence, cigarettes, uncomplicated
CPT/HCPCS: 36415; 71046; 80053; 83690; 84484; 85025; 93005; 96361; 96374; 99284; J2060; J7030

== ENCOUNTER 2023-05-05 19:00 | Emergency (ER) | payer MEDICAID, SELFPAY ==
[2023-05-05] VITALS (7 sets, daily range): BP systolic 132–144; BP diastolic 77–104; PULSE 60–66; RESP 14–20; TEMP 36.5–36.6; O2SAT 96–100
--- NOTE | ~2023-05-05 | XR_ITS ---
EXAMINATION: XR chest 1V portable INDICATION: Dizziness TECHNIQUE: Portable AP chest at 1942 hours COMPARISON: 04/20/2023 FINDINGS: The lungs are free of acute opacities. Chronic scarring is again noted at the left lateral costophrenic angle. No pleural effusion or pneumothorax. The cardiomediastinal silhouette is stable. A dual-lead cardiac pacemaker of the left chest wall ends with leads in expected locations. IMPRESSION: 1. No acute cardiopulmonary abnormality. Reviewed, dictated and finalized at location F.
--- NOTE | ~2023-05-05 | CT_ITS ---
EXAMINATION: CT brain wo con INDICATION: Dizziness COMPARISON: None TECHNIQUE: Standard unenhanced head CT. The dose-length product (DLP) was 681.00 mGy-cm. The mA was a djusted according to patient size. Iterative reconstruction technique was employed. FINDINGS: No intracranial hemorrhage, acute infarction, or abnormal mass lesion. Again noted is a sma ll focus of low attenuation in the left frontal lobe without significant change. The ventricles are n ormal. No abnormal mass effect or midline shift. The de leon-white matter differentiation is normal. The basal cisterns are patent. The orbits are normal. The paranasal sinuses, mastoids and calvarium are normal. IMPRESSION: 1. Stable small focus of nonspecific low attenuation in the left frontal lobe white matter with diffe rential as previously described. Reviewed, dictated and finalized at location F. IMPRESSION: 1. Stable small focus of nonspecific low attenuation in the left frontal lobe w kenan matter with differential as previously described.
--- NOTE | 2023-05-05 19:24 | ECG_ITS ---
Measurements Intervals [place] Rate: 59 P: 261 [place]: 212 QRS: 30 QRSD: 118 T: 35 QT: 455 QTc: 454 Interpretive Statements ELECTRONIC ATRIAL PACEMAKER ATYPICAL ECG COMPARED TO ECG 04/20/2023 05:07:49 NO SIGNIFICANT CHANGES Electronically Signed On 05-06-2023 9:06:42 CDT by Silvino Mayberry M.D.
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
[2023-05-05 19:37] LABS: Basophils Absolute Auto 0.05 K/mm3 (0.00-0.10); Basophils Percent Auto 0.6 % (0.0-1.0); Eosinophils Absolute Auto 0.41 K/mm3 (0.02-0.50); Eosinophils Percent Auto 4.8 % (1.0-6.0); Hematocrit 39.6 % (40.0-54.0); Hemoglobin 13.1 g/dL (14.0-18.0); Immature Granulocyte Absolute 0.03 K/mm3 (0.00-0.00); Immature Granulocyte Percent A 0.3 % (0.0-0.0); Lymphocytes Absolute Auto 2.09 K/mm3 (1.10-4.50); Lymphocytes Percent Auto 24.2 % (18.0-42.0); Mean Corpuscular HGB Conc 33.1 g/dL (32.0-36.0); Mean Corpuscular Hemoglobin 29.3 pg (27.0-31.0); Mean Corpuscular Volume 88.6 fL (78.0-102.0); Mean Platelet Volume 10.2 fl (8.7-11.0); Monocytes Absolute Auto 0.45 K/mm3 (0.10-0.90); Monocytes Percent Auto 5.2 % (2.0-11.0); Neutrophils Absolute Auto 5.6 K/mm3 (1.7-7.2); Neutrophils Percent Auto 64.9 % (50.0-70.0); Platelet Count Result 237 K/mm3 (150-420); Red Blood Count 4.47 M/mm3 (4.70-6.10); Red Cell Distribution Width 13.2 % (11.6-14.4); White Blood Count 8.6 K/mm3 (4.8-10.8)
[2023-05-05 19:55] LABS: Alanine Aminotransferase 30 U/L (16-63); Albumin Level 3.8 g/dL (3.4-5.0); Alkaline Phosphatase 61 U/L (46-116); Anion Gap 7 mmol/L (8-16); Aspartate Amino Transferase 20 U/L (15-37); Bilirubin,Total 0.4 mg/dL (0.00-1.00); Blood Urea Nitrogen 14 mg/dL (7-18); Calcium 9.1 mg/dL (8.5-10.1); Carbon Dioxide 27 mmol/L (21-32); Chloride 104 mmol/L (98-108); Estimated Glomerular Filt Rate > 60; Glucose 117 mg/dL (70-99); Lipase 65 U/L (16-77); Osmolality Calculated 287 mOsm/kg (285-295); Potassium 3.6 mmol/L (3.5-5.1); Sodium 138 mmol/L (136-145); Total Protein 6.9 g/dL (6.4-8.2); Troponin I 6.6 ng/L (0.00-60.4)
[2023-05-05 19:58] LABS: Lactic Acid Reflex 0.9 mmol/L (0.4-2.0)
[2023-05-05 20:02] LABS: SARS-CoV-2 RNA PCR Negative (Negative)
[2023-05-05] MEDS: LORazepam (*CRX) 1 MG TABLET PO (20:44)
== END 2023-05-05 21:55 | disposition home or self-care (01) ==
PROVIDERS: Emergency Provider Internal Medicine Critical Care Medicine; PCP Internal Medicine
DX: F41.9 Anxiety disorder, unspecified (principal); R42 Dizziness and giddiness; F17.210 Nicotine dependence, cigarettes, uncomplicated; Z20.822 Contact with and (suspected) exposure to COVID-19
CPT/HCPCS: 36415; 70450; 71045; 80053; 83605; 83690; 84484; 85025; 87635; 93005; 99284; A9270

== ENCOUNTER 2023-05-22 01:25 | Emergency (ER) | payer MEDICAID, SELFPAY ==
[2023-05-22] VITALS (10 sets, daily range): BP systolic 118–130; BP diastolic 65–80; PULSE 60–71; RESP 11–22; TEMP 36.3; O2SAT 95–97
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
[2023-05-22 02:05] LABS: Basophils Absolute Auto 0.03 K/mm3 (0.00-0.10); Basophils Percent Auto 0.4 % (0.0-1.0); Eosinophils Absolute Auto 0.35 K/mm3 (0.02-0.50); Eosinophils Percent Auto 4.3 % (1.0-6.0); Hematocrit 38.9 % (40.0-54.0); Hemoglobin 12.7 g/dL (14.0-18.0); Immature Granulocyte Absolute 0.02 K/mm3 (0.00-0.00); Immature Granulocyte Percent A 0.2 % (0.0-0.0); Lymphocytes Absolute Auto 2.21 K/mm3 (1.10-4.50); Lymphocytes Percent Auto 27.1 % (18.0-42.0); Mean Corpuscular HGB Conc 32.6 g/dL (32.0-36.0); Mean Corpuscular Hemoglobin 29.1 pg (27.0-31.0); Mean Platelet Volume 9.8 fl (8.7-11.0); Monocytes Absolute Auto 0.51 K/mm3 (0.10-0.90); Monocytes Percent Auto 6.3 % (2.0-11.0); Neutrophils Percent Auto 61.7 % (50.0-70.0); Platelet Count Result 242 K/mm3 (150-420); Red Blood Count 4.37 M/mm3 (4.70-6.10); Red Cell Distribution Width 13.3 % (11.6-14.4); White Blood Count 8.2 K/mm3 (4.8-10.8)
[2023-05-22 02:18] LABS: Influenza A QL RT-PCR Negative (Negative); Influenza B QL RT-PCR Negative (Negative); SARS-CoV-2 RNA PCR Negative (Negative)
[2023-05-22 02:21] LABS: Alanine Aminotransferase 18 U/L (16-63); Albumin Level 3.6 g/dL (3.4-5.0); Alkaline Phosphatase 52 U/L (46-116); Anion Gap 9 mmol/L (8-16); Aspartate Amino Transferase < 10 U/L (15-37); Bilirubin,Total 0.3 mg/dL (0.00-1.00); Blood Urea Nitrogen 21 mg/dL (7-18); CRP 0.9 mg/dL (0.0-0.9); Calcium 9.7 mg/dL (8.5-10.1); Carbon Dioxide 31 mmol/L (21-32); Chloride 103 mmol/L (98-108); Estimated CRCL calculation 73 ml/min; Estimated Glomerular Filt Rate > 60; Glucose 121 mg/dL (70-99); Magnesium 2.2 mg/dL (1.8-2.4); Osmolality Calculated 300 mOsm/kg (285-295); Potassium 3.6 mmol/L (3.5-5.1); Sodium 143 mmol/L (136-145); Total Protein 6.6 g/dL (6.4-8.2)
[2023-05-22] MEDS: ALPRAZolam (*CRX) 0.5 MG TABLET PO (02:54)
== END 2023-05-22 03:01 | disposition home or self-care (01) ==
PROVIDERS: Emergency Provider Emergency Medicine; PCP Internal Medicine
DX: F41.9 Anxiety disorder, unspecified (principal); F17.210 Nicotine dependence, cigarettes, uncomplicated; Z20.822 Contact with and (suspected) exposure to COVID-19
CPT/HCPCS: 36415; 80053; 83735; 85025; 86140; 87636; 99284; A9270

== ENCOUNTER 2023-06-11 08:38 | Emergency (ER) | payer MEDICAID, SELFPAY ==
[2023-06-11 08:38] VITALS: BP 128/95; PULSE 64; RESP 14; TEMP 36.4; O2SAT 99
[2023-06-11 08:40] VITALS: PULSE 63
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
[2023-06-11 09:04] LABS: Basophils Absolute Auto 0.05 K/mm3 (0.00-0.10); Basophils Percent Auto 0.6 % (0.0-1.0); Eosinophils Absolute Auto 0.33 K/mm3 (0.02-0.50); Eosinophils Percent Auto 3.8 % (1.0-6.0); Hematocrit 41.2 % (40.0-54.0); Hemoglobin 13.6 g/dL (14.0-18.0); Immature Granulocyte Absolute 0.03 K/mm3 (0.00-0.00); Immature Granulocyte Percent A 0.3 % (0.0-0.0); Lymphocytes Absolute Auto 2.16 K/mm3 (1.10-4.50); Mean Corpuscular Hemoglobin 28.7 pg (27.0-31.0); Mean Corpuscular Volume 86.9 fL (78.0-102.0); Mean Platelet Volume 9.4 fl (8.7-11.0); Monocytes Absolute Auto 0.65 K/mm3 (0.10-0.90); Monocytes Percent Auto 7.5 % (2.0-11.0); Neutrophils Absolute Auto 5.4 K/mm3 (1.7-7.2); Neutrophils Percent Auto 62.8 % (50.0-70.0); Platelet Count Result 232 K/mm3 (150-420); Red Blood Count 4.74 M/mm3 (4.70-6.10); Red Cell Distribution Width 13.3 % (11.6-14.4); White Blood Count 8.6 K/mm3 (4.8-10.8)
--- NOTE | 2023-06-11 09:08 | PC.NURSE ---
pt tearful and scared regarding dizziness. doesnt understand why this keeps happening. states has follow up appt with cardiology in june. encouraged to call cardiology and inform of recent er visits with continued dizziness since placement of pacemaker. pt voiced understanding.
[2023-06-11 09:20] LABS: Alanine Aminotransferase 26 U/L (16-63); Albumin Level 3.7 g/dL (3.4-5.0); Alkaline Phosphatase 70 U/L (46-116); Anion Gap 8 mmol/L (8-16); Aspartate Amino Transferase 22 U/L (15-37); Bilirubin,Total 0.4 mg/dL (0.00-1.00); Blood Urea Nitrogen 23 mg/dL (7-18); Calcium 8.7 mg/dL (8.5-10.1); Carbon Dioxide 28 mmol/L (21-32); Chloride 104 mmol/L (98-108); Estimated CRCL calculation 76 ml/min; Estimated Glomerular Filt Rate > 60; Glucose 98 mg/dL (70-99); Osmolality Calculated 293 mOsm/kg (285-295); Sodium 140 mmol/L (136-145); Total Protein 7.1 g/dL (6.4-8.2)
[2023-06-11 09:32] VITALS: BP 128/74; PULSE 61; RESP 20; TEMP 36.9; O2SAT 97
--- NOTE | 2023-06-11 09:46 | PC.NURSE ---
pt upset with dx. im tired of coming here and being told nothing is wrong with me attempted to discuss discharge instructions pt walked out of room. discharge instructions given to mother and son of pt. voiced understanding; again encouraged family to contact cardiology. stated pt said he has appt in june. mother states the appt is for the dentist. mother signed discharge instructions.
== END 2023-06-11 09:50 | disposition home or self-care (01) ==
PROVIDERS: Emergency Provider Emergency Medicine; PCP Internal Medicine
DX: R42 Dizziness and giddiness (principal); F17.210 Nicotine dependence, cigarettes, uncomplicated
CPT/HCPCS: 36415; 80053; 83735; 85025; 99284

== ENCOUNTER 2023-07-04 19:12 | Emergency (ER) | payer MEDICAID, SELFPAY ==
[2023-07-04 19:17] VITALS: BP 135/98; PULSE 86; RESP 24; TEMP 36.4; O2SAT 96
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
[2023-07-04] MEDS: DOXYCYCLINE HYCLATE 100 MG TABLET PO (19:55)
[2023-07-04] MEDS: predniSONE 20 MG TABLET PO (19:55)
[2023-07-04] MEDS: AMOXICILLIN/CLAVULANATE K 875-125 MG TAB 1 TABLET PO (19:55)
== END 2023-07-04 20:07 | disposition home or self-care (01) ==
PROVIDERS: Emergency Provider Family Medicine
DX: J18.9 Pneumonia, unspecified organism (principal); J06.9 Acute upper respiratory infection, unspecified; F17.210 Nicotine dependence, cigarettes, uncomplicated
CPT/HCPCS: 99283; A9270; J7512

== ENCOUNTER 2023-08-26 04:26 | Emergency (ER) | payer OTHER, SELFPAY ==
[2023-08-26] VITALS (28 sets, daily range): BP systolic 111–138; BP diastolic 55–95; PULSE 76–111; RESP 12–19; TEMP 36.2–37; O2SAT 92–100
--- NOTE | ~2023-08-26 | XR_ITS ---
Portable chest x-ray Comparison: 05/05/2023 Clinical History: Chest pain Findings: Lungs are clear, without focal consolidation or pleural effusion. Cardiomediastinal silho uette is stable, with pacemaker device. Bones and soft tissues are unremarkable. Impression: Clear lungs. Pacemaker device. Reviewed, dictated and finalized at location M. BOROMA OPERATOR Impression: Clear lungs. Pacemaker device.
--- NOTE | ~2023-08-26 | CT_ITS ---
Clinical Indication: Chest pain CT Scan of the Chest with Contrast: Technique: Contiguous sections were acquired throughout the chest after intravenous administration of 100 cc of Omnipaque 350. Dose reduction technique was used on this scan by utilizing automated expos ure control and iterative reconstruction technique. The dose-length product (DLP) was 419.97 mGy-cm. COMPARISON: 12/17/2022 Findings: There is no evidence of any significant mediastinal, hilar or axillary lymphadenopathy. No large cent ral pulmonary embolus seen. Evaluation for smaller, more peripheral pulmonary emboli is limited by re spiratory motion artifact. There is no evidence of aortic dissection or aneurysm. There is no evidence of pleural or pericardial effusion. The lungs are clear. No pulmonary nodules or infiltrates are noted. Images through the upper abdomen reveal no abnormalities. Compression fracture T12 present, probably chronic. Impression: No large central pulmonary embolus. Evaluation for smaller, more peripheral pulmonary emboli is limit ed due to respiratory motion artifact. Clear lungs. T12 compression fracture, probably chronic. Reviewed, dictated and finalized at [facility]. [facility] [employer] Impression: No large central pulmonary embolus. Evaluation for smaller, more peripheral pul monary emboli is limited due to respiratory motion artifact. Clear lungs. T12 compression fracture, probably chronic.
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
--- NOTE | 2023-08-26 04:41 | ECG_ITS ---
Measurements Intervals [place] Rate: 106 P: 68 NV: 141 QRS: 53 QRSD: 104 T: 59 QT: 356 QTc: 475 Interpretive Statements SINUS TACHYCARDIA INCOMPLETE RIGHT BUNDLE BRANCH BLOCK [90+ ms QRS DURATION, TERMINAL R IN V1/V2, 40+ ms S IN I/aVL/V4/V5/V6] ABNORMAL RHYTHM ECG COMPARED TO ECG 05/05/2023 20:20:51 SINUS TACHYCARDIA NOW PRESENT Electronically Signed On 08-26-2023 13:55:20 [facility] by Sylwia Santos M.D.
[2023-08-26 04:48] LABS: Basophils Absolute Auto 0.03 K/mm3 (0.00-0.10); Basophils Percent Auto 0.3 % (0.0-1.0); Eosinophils Absolute Auto 0.24 K/mm3 (0.02-0.50); Eosinophils Percent Auto 2.5 % (1.0-6.0); Hematocrit 43.2 % (40.0-54.0); Hemoglobin 14.1 g/dL (14.0-18.0); Immature Granulocyte Absolute 0.04 K/mm3 (0.00-0.00); Immature Granulocyte Percent A 0.4 % (0.0-0.0); Lymphocytes Absolute Auto 2.95 K/mm3 (1.10-4.50); Lymphocytes Percent Auto 30.6 % (18.0-42.0); Mean Corpuscular HGB Conc 32.6 g/dL (32.0-36.0); Mean Corpuscular Hemoglobin 27.9 pg (27.0-31.0); Mean Corpuscular Volume 85.4 fL (78.0-102.0); Mean Platelet Volume 9.6 fl (8.7-11.0); Monocytes Absolute Auto 1.28 K/mm3 (0.10-0.90); Monocytes Percent Auto 13.3 % (2.0-11.0); Neutrophils Absolute Auto 5.1 K/mm3 (1.7-7.2); Neutrophils Percent Auto 52.9 % (50.0-70.0); Platelet Count Result 304 K/mm3 (150-420); Red Blood Count 5.06 M/mm3 (4.70-6.10); Red Cell Distribution Width 13.9 % (11.6-14.4); White Blood Count 9.7 K/mm3 (4.8-10.8)
--- NOTE | 2023-08-26 04:55 | PC.NURSE ---
patient awake and anxious, alert and talkative. encouraged to take slow deep breaths to help with restlessness.
[2023-08-26 05:01] LABS: INR 0.9; Partial Thromboplastin Time 25.7 SEC (23.90-30.70); Prothrombin Time 10.3 Seconds (9.50-12.10)
[2023-08-26] MEDS: LORazepam INJ (*CRX) 2 MG/ML VIAL IV PUSH (05:01)
[2023-08-26 05:04] LABS: Lactic Acid Reflex 2.3 mmol/L (0.4-2.0)
[2023-08-26 05:08] LABS: Alanine Aminotransferase 25 U/L (16-63); Albumin Level 3.8 g/dL (3.4-5.0); Alkaline Phosphatase 68 U/L (46-116); Anion Gap 13 mmol/L (8-16); Aspartate Amino Transferase 28 U/L (15-37); Bilirubin,Total 0.5 mg/dL (0.00-1.00); Blood Urea Nitrogen 17 mg/dL (7-18); Carbon Dioxide 25 mmol/L (21-32); Chloride 101 mmol/L (98-108); Estimated CRCL calculation 75 ml/min; Estimated Glomerular Filt Rate > 60; Glucose 82 mg/dL (70-99); NT Pro B Type Natriuretic Pept 105 pg/mL (0-125); Osmolality Calculated 288 mOsm/kg (285-295); Potassium 4.2 mmol/L (3.5-5.1); Sodium 139 mmol/L (136-145); Total Protein 7.9 g/dL (6.4-8.2)
--- NOTE | 2023-08-26 05:10 | PC.NURSE ---
patient medicated, see MAR. [employer] pacemaker interrogated by RN at this time. awaiting faxed results.
[2023-08-26] MEDS: LACTATED RINGERS 1,000 ML 999 ML IV CONT (05:17)
[2023-08-26 05:24] LABS: D Dimer 1.63 mg/L (0.19-0.50)
[2023-08-26 05:24] LABS: SARS-CoV-2 RNA PCR Negative (Negative)
[2023-08-26 05:34] LABS: Influenza A QL RT-PCR Negative (Negative); Influenza B QL RT-PCR Negative (Negative); RSV RNA, RT-PCR Negative (Negative)
--- NOTE | 2023-08-26 05:34 | PC.NURSE ---
awaiting medical records from [facility]. patient responded well to IVP medication, VSS. IVF infusing. patient awaiting KAILEY. Lois ACOSTA at bedside.
--- NOTE | 2023-08-26 06:01 | PC.NURSE ---
Pt returned from imaging, awaiting results. patient calm and quiet, resting on stretcher without distress. reconnected to monitors. vss. IVF nearing completion.
--- NOTE | 2023-08-26 06:58 | PC.NURSE ---
line up worker at bedside for repeat troponin value. patient remains calm with vss. nad and no c/o pain.
--- NOTE | 2023-08-26 07:07 | PC.NURSE ---
patient report given to KAMAR Nava. Patient resting calmly on stretcher without distress, PD remains at bedside. plan to await results of repeat troponin prior to DC.
[2023-08-26 07:24] LABS: Troponin I 5.8 ng/L (0.00-60.4)
[2023-08-26 07:45] LABS: Reflex Lactic Acid Yes or No Add Lactic
== END 2023-08-26 07:36 | disposition home or self-care (01) ==
PROVIDERS: Internal Medicine Critical Care Medicine; Emergency Provider Emergency Medicine
DX: F41.9 Anxiety disorder, unspecified (principal); R07.9 Chest pain, unspecified; F17.210 Nicotine dependence, cigarettes, uncomplicated; Z20.822 Contact with and (suspected) exposure to COVID-19
CPT/HCPCS: 36415; 71045; 71275; 80053; 83605; 83880; 84484; 85025; 85380; 85610; 85730; 87637; 93005; 96361; 96374; 99284; J2060; J7120; Q9967